=== PATIENT | male | born 1975 | race Native Hawaiian/Other Pacific Islander ===

== ENCOUNTER 2018-12-09 09:49 | Outpatient (CLI) | payer OTHER ==
[~2018-12-09 09:49] MED LIST: AMBIEN CR6.25 MG PO; AMOX500C85 PO; CEFTIN250 MG OR; CEPACOL SORE1 LOZ MT; FLUT0.05 NAS; NEXIUM20 M1 PO
== END 2018-12-09 20:30 | disposition home or self-care (01) ==
LOC: LABW 09:49 → MRI 09:49
DX: M25.562 Pain in left knee (principal); R51 Headache; R41.3 Other amnesia
CPT/HCPCS: 36415; 82140; 82607; 82746; 84443

== ENCOUNTER 2019-09-23 13:11 | Outpatient (CLI) | payer OTHER | END 2019-09-23 22:07 | disposition home or self-care (01) | LOC: RAD 13:11 | DX: R91.8 Other nonspecific abnormal finding of lung field (principal) ==

== ENCOUNTER 2019-11-15 08:15 | Outpatient (CLI) | payer OTHER | END 2019-11-15 20:08 | disposition home or self-care (01) | LOC: CT 08:15 | DX: R91.8 Other nonspecific abnormal finding of lung field (principal) | CPT/HCPCS: Q9963 ==

== ENCOUNTER 2020-03-16 08:52 | Outpatient (CLI) | payer OTHER | END 2020-03-16 23:05 | disposition home or self-care (01) | LOC: RAD 08:52 | DX: R05 Cough (principal) ==

== ENCOUNTER 2021-01-07 13:29 | Outpatient (CLI) | payer OTHER | END 2021-01-07 22:16 | disposition home or self-care (01) | LOC: RAD 13:29 | PROVIDERS: ATTEND Nurse Practitioner | DX: M79.672 Pain in left foot (principal) ==

== ENCOUNTER 2021-06-12 09:27 | Outpatient (CLI) | payer OTHER ==
[~2021-06-12] VITALS: Ht 193 cm; Wt 129.3 kg
== END 2021-06-12 21:09 | disposition home or self-care (01) ==
LOC: INF 09:27
PROVIDERS: ATTEND Internal Medicine
DX: Z23 Encounter for immunization (principal); U07.1 COVID-19
CPT/HCPCS: 96365; M0244

== ENCOUNTER 2021-06-17 14:41 | Outpatient (CLI) | payer OTHER | END 2021-06-17 22:04 | disposition home or self-care (01) | LOC: RAD 14:41 | PROVIDERS: ATTEND Registered Nurse | DX: R05 Cough (principal) ==

== ENCOUNTER 2021-10-01 14:08 | Outpatient (CLI) | payer OTHER | END 2021-10-01 19:05 | disposition home or self-care (01) | LOC: RAD 14:08 | PROVIDERS: ATTEND Nurse Practitioner Family | DX: J20.9 Acute bronchitis, unspecified (principal) ==

== ENCOUNTER 2022-10-03 09:30 | Outpatient (CLI) | payer OTHER | END 2022-10-03 19:02 | disposition home or self-care (01) | LOC: MRI 09:30 | PROVIDERS: ATTEND Neurological Surgery | DX: M54.16 Radiculopathy, lumbar region (principal) ==

== ENCOUNTER 2023-07-13 11:48 | Outpatient (CLI) | payer OTHER | END 2023-07-13 21:25 | disposition home or self-care (01) | LOC: RAD 11:48 | PROVIDERS: ATTEND Nurse Practitioner | DX: R07.89 Other chest pain (principal) ==